=== PATIENT | male | born 1975 | race Caucasian/White ===

== ENCOUNTER → 2018-04-06 | Outpatient (CLI) | payer OTHER ==
[~2018-04-06] MED LIST: CELEXA 20MG20 MG/TAB PO; MULTIPLE VITAMI1 CAP PO
== END ==
LOC: ZCOL.LAB 16:17
DX: K61.0 Anal abscess (principal)

== ENCOUNTER → 2019-09-14 | Outpatient (CLI) | payer SELFPAY | LOC: ZCOL.LAB 16:49 | DX: K61.0 Anal abscess (principal) ==

== ENCOUNTER 2019-11-24 18:10 | Emergency (ER) | payer SELFPAY ==
[~2019-11-24] VITALS: Ht 172.7 cm; Wt 81.8 kg
[2019-11-24 18:15] VITALS: BP 119/56; TEMP 97.8
[2019-11-24 18:59] VITALS: PULSE 102
== END 2019-11-24 18:59 | disposition home or self-care (01) ==
LOC: COL.ER 18:10
DX: S01.312A Laceration without foreign body of left ear, initial encounter (principal); F32.9 Major depressive disorder, single episode, unspecified; Y04.0XXA Assault by unarmed brawl or fight, initial encounter; W01.190A Fall on same level from slipping, tripping and stumbling with subsequent striking against furniture, initial encounter

== ENCOUNTER → 2019-12-01 | Outpatient (CLI) | payer SELFPAY ==
[2019-12-01 19:47] VITALS: BP 118/76; PULSE 86; TEMP 99.1
== END ==
LOC: COL.ER 19:08
DX: Z48.02 Encounter for removal of sutures (principal)

== ENCOUNTER 2020-12-23 06:46 | Day surgery (SDC) | payer SELFPAY ==
[~2020-12-23] VITALS: Ht 172.7 cm; Wt 82.6 kg
[2020-12-23 07:09] VITALS: BP 103/61; PULSE 73; TEMP 97.7
[2020-12-23] MEDS ORDERED: ZOLOFT 100MG100 MG PO (07:11)
[2020-12-23] MEDS ORDERED: LAMICTAL 100MG100 MG PO (07:11)
--- NOTE | 2020-12-23 07:44 | NUR ---
The patient was unable to swallow the Anivert as ordered. Anesthesia to be notified when they come to evaluate the patient pre op.
--- NOTE | 2020-12-23 08:54 | NUR ---
The patient was taken back via cart to the operating room at this time. The patient's chart was sent with him. The nurse will continue to monitor the patient when he returns to the unit post operatively.
[2020-12-23] MEDS ORDERED: COLACE 100100 MG/CAP PO (09:50)
[2020-12-23] MEDS ORDERED: NORCO 325 MG-51 TAB PO (09:50)
[2020-12-23] MEDS ORDERED: GOOD NEIGH3.4 GM/Dos PO (09:50)
[2020-12-23] MEDS ORDERED: MOTRIN 600600 MG/TAB PO (09:51)
[2020-12-23 09:58] VITALS: TEMP 98.7
[2020-12-23 10:15] VITALS: BP 117/70; PULSE 80
--- NOTE | 2020-12-23 10:15 | NUR ---
Patient returns to room 7 per cart from PACU accompanied by Angelic VILLEDA and is awake and alert. Room air sats 99%. 4x4 gauze dressing clean and dry. IV fluids infusing. Siderails up x2 and call light in reach. Temp 98.2. Given orange juice and is eating blueberry muffin.
[2020-12-23 10:30] VITALS: BP 104/72; PULSE 77
--- NOTE | 2020-12-23 10:30 | NUR ---
Resting on cart and listening to music. Instructed on how to use sitz bath.
[2020-12-23 10:45] VITALS: BP 118/67; PULSE 85
--- NOTE | 2020-12-23 10:45 | NUR ---
Tolerated muffin and juice. Continues to deny pain or nausea.
--- NOTE | 2020-12-23 10:49 | NUR ---
Assisted up to the bathroom and is able to void and returns to room.
--- NOTE | 2020-12-23 10:55 | NUR ---
IV discontinued and given dismissal instructions. Voices understanding of these. Instructed on sitz bath.
--- NOTE | 2020-12-23 11:03 | NUR ---
Dismissal instructions signed and voices understanding of these. Dismissed to home driven by friends and taken to the emergency room entrance by wheelchair and assisted into vehicle with sitz bath and dismissal instructions.
== END 2020-12-23 11:03 | disposition home or self-care (01) ==
LOC: SDCO 06:46
DX: K60.1 Chronic anal fissure (principal); G47.30 Sleep apnea, unspecified; F31.9 Bipolar disorder, unspecified; F41.9 Anxiety disorder, unspecified; Z20.822 Contact with and (suspected) exposure to COVID-19; Z79.899 Other long term (current) drug therapy; Z90.89 Acquired absence of other organs; Z83.3 Family history of diabetes mellitus
CPT/HCPCS: J0690; J1100; J1885; J2405; J2704; J3010; J7120